=== PATIENT | male | born 1990 | race Native Hawaiian/Other Pacific Islander ===

== ENCOUNTER 2021-04-23 03:49 | Emergency (ER) | payer OTHER ==
[~2021-04-23] VITALS: Ht 180.3 cm; Wt 77.1 kg
[2021-04-23 03:50] VITALS: BP 130/90; TEMP 98.9
== END 2021-04-23 05:37 | disposition home or self-care (01) ==
LOC: ED 03:49
DX: T17.298A Other foreign object in pharynx causing other injury, initial encounter (principal); X58.XXXA Exposure to other specified factors, initial encounter; Y93.9 Activity, unspecified; Y92.89 Other specified places as the place of occurrence of the external cause; Z53.29 Procedure and treatment not carried out because of patient's decision for other reasons
CPT/HCPCS: 80307; 80320; 96372; 99283; J1610